=== PATIENT | female | born 1980 | race Caucasian/White ===

== ENCOUNTER 2022-05-16 13:13 | Outpatient (CLI) | payer BC, SELFPAY ==
--- NOTE | ~2022-05-16 | US_ITS ---
EXAMINATION: US pelvic complete w TV DATE: 05/16/2022 14:44 INDICATION: Abnormal uterine and vaginal bleeding. History of fibroids. Comparison:No prior studies for comparison. TECHNIQUE: Multiple transabdominal and endovaginal sonographic images of the pelvis performed. FINDINGS: The uterus measures 9.6 x 5.6 x 5.7 cm. There is a possible mass at the fundus of the uteru s, suspicious for fibroid, not well defined. The endometrial complex measures 11 mm. The right ovary measures 2.9 x 2 x 2.7 cm and the left ovary measures 3.2 x 3.3 x 2.7 cm. There is a 2.6 cm left ovarian cyst. There are small follicles in each ovary. Normal doppler signal in both ovar ies. There is no free fluid in the pelvis. There are no abnormal masses seen on either side. IMPRESSION: 1. Left ovarian cyst measuring 2.6 cm. 2: Possible mass at the fundus of uterus, suspicious for fibroid, not well delineated. Reviewed, dictated and finalized at location A. IMPRESSION: 1. Left ovarian cyst measuring 2.6 cm. 2: Possible mass at the fundus of uterus, suspicious for fibroid, not well deli neated.
== END 2022-05-16 13:14 | disposition home or self-care (01) ==
LOC: ANHIMG 13:14
PROVIDERS: Visit Provider Obstetrics & Gynecology
DX: N83.202 Unspecified ovarian cyst, left side (principal)
CPT/HCPCS: 76830; 76856

== ENCOUNTER 2022-07-30 14:13 | Outpatient (CLI) | payer BC, SELFPAY ==
--- NOTE | 2022-07-30 14:00 | ECG_ITS ---
Measurements Intervals [place] Rate: 66 P: 38 [place]: 160 QRS: 23 QRSD: 92 T: 6 QT: 412 QTc: 433 Interpretive Statements SINUS RHYTHM WITH SINUS ARRHYTHMIA LOW QRS VOLTAGE IN PRECORDIAL LEADS BASELINE ARTIFACT- I, II, AVR, AVL, AVF, V3 BORDERLINE ECG NO PREVIOUS ECG AVAILABLE FOR COMPARISON Electronically Signed On 07-30-2022 16:18:32 CDT by Reagan José D.O.
== END 2022-07-30 14:14 | disposition home or self-care (01) ==
LOC: ANHSURGERY 14:29
PROVIDERS: PCP Student in an Organized Health Care Education/Training Program; Visit Provider Obstetrics & Gynecology
DX: D25.9 Leiomyoma of uterus, unspecified (principal); I10 Essential (primary) hypertension; Z01.818 Encounter for other preprocedural examination; R94.31 Abnormal electrocardiogram [ECG] [EKG]
CPT/HCPCS: 36415; 86850; 86900; 86901; 93005

== ENCOUNTER 2022-07-31 01:18 | Day surgery (SDC) | payer BC, SELFPAY ==
[2022-07-25 14:59] VITALS: BMI 38.0
--- NOTE | 2022-07-25 15:12 | PC.NURSE ---
Report to the Outpatient Waiting Room, entrance under the green pavilion located off [facility], at time 10:30 on date 07/31/22. OR Time: 12:30. Time changes happen often and if your time is changed the preop area will call you the afternoon before. - You and your visitor will be asked to self-screen and do not enter if you have any COVID symptoms. - Only one visitor and NO children visitors are allowed at this time. YOU WILL BE ALLOWED 2 VISITORS AT A TIME ONCE YOU ARE IN YOUR ROOM AFTER SURGERY. - The patient visitor is requested to leave or wait in car when not with patient due to restrictions. - A mask is required within the hospital. Patients may have clear liquids (water, carbonated beverages, clear teas, apple juice) until 3 hours prior to surgery (9:30) with a maximum of 20 ounces. - No food from midnight until time of surgery Take the following medications with a SIP of water the morning of surgery: INHALERS, LAMOTRIGINE, LORAZEPAM IF NEEDED Medications to discontinue per physician: N/A Date to take last dose: N/A Please no make-up, nail urdu, hairspray, perfume, deodorant, or body powder the day of surgery. No jewelry (including any body piercings) or valuables the day of surgery, leave them at home. Please take a shower or bath the night before, or the morning of, surgery with an antibacterial soap. Wear comfortable, loose fitting clothing. - Jewelry must be removed prior to entering the operating room. Rings and piercings that are not removed may be cut off. - The hospital will not accept responsibility for valuables. - Please leave all valuables, including medications, at home the day of surgery. If you are going home after surgery, a licensed buggy driver must drive you home. - NO public transportation without another adult. - We recommend that an adult stay with you for 24 hours following discharge. - We also recommend that you do not drive, make important decision, drink alcoholic beverages, or take any drugs that were not prescribed by your health care provider for at least 24 hours after your discharge time. Follow any additional instructions given to you from your surgeon. If you or anyone in your household have experienced Covid symptoms in the past week, please notify your surgeon or the nurse liaison at the phone number below for possible testing. Telephone instructions given to PT - RUSSELL MENDOZA and asked if any additional questions and then verbalized understanding. Patient advised to call surgeon office or pre surgery nurse liaison [phone] if any additional questions.
[2022-07-31] VITALS (10 sets, daily range): BP systolic 100–120; BP diastolic 58–78; PULSE 56–76; RESP 12–20; TEMP 36.4–36.6; O2SAT 95–100
--- NOTE | 2022-07-31 07:26 | PM.IMHP ---
H&P: HPI History of Present Illness Date/Time: 07/31/22 07:26 41-year-old P0 patient presents for treatment of symptomatic uterine fibroids. She has a longstanding history of heavy vaginal bleeding with severe cramping and discomfort. Also with lower back pain and occasional urge symptomatology, though she has no stress incontinence. Ultrasound has revealed a 9cm fundal fibroid, no other abnormalities of significance. Chief Complaint: Menometrorrhagia Review of Systems Review of Systems: All systems reviewed & are unremarkable except as noted in HPI and below PMFSH Past Medical History Medical History Asthma GERD (gastroesophageal reflux disease) Hypertension Panic attack 10/2018 Family History Family History Mother Diabetes mellitus Grandparent Chronic obstructive lung disease maternal grandmother Social History Social History Smoking status: Never smoker Additional smoking assessment comments: SOCIAL SMOKING WHEN DRINKING Alcohol intake: current Drinks per week: 4 Alcohol use details: 4-6/MONTH Substance use: current Substance use type: marijuana Other substance usage details: 1 x month Living arrangements: with family Additional living arrangements comments: 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 Gender identity (if verbalized by the patient): Female Sexual Orientation (if Verbalized by the Patient): Straight or Heterosexual Spiritual care concerns: No Meds Home Medications and Allergies Home Medications Medication Instructions Recorded Confirmed Type albuterol sulfate 90 mcg/actuation 1 inh inhalation Q4H 05/08/22 07/25/22 History aerosol inhaler (Ventolin HFA) fluticasone furoate 100 1 inh inhalation DAILY 05/08/22 07/25/22 History mcg/actuation blister powder for inhalation (Arnuity Ellipta) lamotrigine 100 mg tablet 100 mg PO DAILY 05/08/22 07/25/22 History lisinopril 5 mg tablet 5 mg PO DAILY 05/08/22 07/25/22 History lorazepam 0.5 mg tablet 0.5 mg PO DAILY PRN Anxiety 05/08/22 07/25/22 History montelukast 10 mg tablet 10 mg PO DAILY 05/08/22 07/25/22 History omeprazole 40 mg capsule,delayed 40 mg PO DAILY 05/08/22 07/25/22 History release eszopiclone 1 mg tablet (Lunesta) 1 mg PO HS PRN Insomnia 07/25/22 07/25/22 History Allergies Allergy/AdvReac Type Severity Reaction Status Date / Time fluconazole AdvReac Mild Flushing Verified 07/25/22 14:57 Exam Const: General: cooperative, healthy appearing and comfortable Resp: Effort & Inspection: normal respiratory effort Auscultation: clear to auscultation bilaterally Cardio: Rate: regular rate Rhythm: regular rhythm GI: Inspection: normal to inspection Auscultation: normal bowel sounds : External Female Exam: normal external appearance Speculum Exam - Vagina: normal appearance of the vagina Speculum Exam - Cervix: normal appearance of the cervix Bimanual exam- vagina & uterus: enlarged Bimanual Exam- Adnexa, other: normal adnexae Assessment and Plan Assessment and plan (1) Menometrorrhagia: Code(s): N92.1 - Excessive and frequent menstruation with irregular cycle Status: Acute (2) Dysmenorrhea: Code(s): N94.6 - Dysmenorrhea, unspecified Status: Acute (3) Fibroid uterus: Code(s): D25.9 - Leiomyoma of uterus, unspecified Status: Acute Plan Will proceed with planned robotic hysterectomy/bilateral salpingectomy with ovarian preservation. We have discussed that there may be multiple etiologies for her symptoms, though she denies any further workup for urinary and or back discomfort. Nonsurgical and under surgeries have been discussed as well and patient opts for hysterectomy. We have also discussed that with this large fibroid accomplishing the enti
--- NOTE | 2022-07-31 07:35 | WPDHPUPDATE1 ---
History and Physical Update Update Date/Time: 07/31/22 07:35 History and Physical has been reviewed, including an updated exam of the patient. There are NO changes in the patient's condition. Risks, benefits, and alternatives have been discussed and questions answered. Patient agrees to proceed with procedure.
[2022-07-31] MEDS: LACTATED RINGERS 1,000 ML 30 ML IV CONT ×3 (11:07→14:29)
[2022-07-31] MEDS: ACETAMINOPHEN 500 MG TABLET 1000 MG PO (11:07)
[2022-07-31] MEDS: KETOROLAC 15 MG/ML VIAL (*BKC) IV PUSH (11:08)
--- NOTE | 2022-07-31 11:20 | WPDANESEPPF ---
Anes - Initial Pre Proc Eval Procedure: Operation Date: 07/31/22 12:30 Proposed Procedures p Robotic Assisted Total Laparoscopic Hysterectomy with Bilateral Salpingectomy - Shmuel Briseno MD Date/Time: 07/31/22 11:20 Surgeon: Shmuel Briseno MD Pre Op Diagnosis: Uterine Fibroid Patient Data Age: 41 Gender: F Height: 1.62 m Weight: 102.7 kg Last Vital Signs Temp 97.9 F 07/31/22 10:53 Pulse 72 07/31/22 10:53 Resp 16 07/31/22 10:53 BP 117/71 07/31/22 10:53 Pulse Ox 98 07/31/22 10:53 O2 Del Method Room Air 07/31/22 10:53 Allergies Allergy/AdvReac Type Severity Reaction Status Date / Time fluconazole AdvReac Mild Flushing Verified 07/31/22 10:41 Home Medications Medication Instructions Recorded Confirmed Type albuterol sulfate 90 mcg/actuation 1 inh inhalation Q4H 05/08/22 07/31/22 History aerosol inhaler (Ventolin HFA) fluticasone furoate 100 1 inh inhalation DAILY 05/08/22 07/31/22 History mcg/actuation blister powder for inhalation (Arnuity Ellipta) lamotrigine 100 mg tablet 100 mg PO DAILY 05/08/22 07/31/22 History lisinopril 5 mg tablet 5 mg PO DAILY 05/08/22 07/31/22 History lorazepam 0.5 mg tablet 0.5 mg PO DAILY PRN Anxiety 05/08/22 07/31/22 History montelukast 10 mg tablet 10 mg PO DAILY 05/08/22 07/31/22 History omeprazole 40 mg capsule,delayed 40 mg PO DAILY 05/08/22 07/31/22 History release eszopiclone 1 mg tablet (Lunesta) 1 mg PO HS PRN Insomnia 07/25/22 07/31/22 History Patient hx anesthesia problems: none Family hx anesthesia problems: none Results Review: All pre-operative results and documents have been reviewed as part of the pre-operative evaluation. [facility] Past Medical History Medical History Asthma GERD (gastroesophageal reflux disease) Hypertension Panic attack 10/2018 Family History Family History Mother Diabetes mellitus Grandparent Chronic obstructive lung disease maternal grandmother Social History Social History Smoking status: Never smoker Additional smoking assessment comments: SOCIAL SMOKING WHEN DRINKING Alcohol intake: current Drinks per week: 4 Alcohol use details: 4-6/MONTH Substance use: current Substance use type: marijuana Other substance usage details: 1 x month Living arrangements: with family Additional living arrangements comments: Additional occupation/education comments: [employer] Gender identity (if verbalized by the patient): Female Sexual Orientation (if Verbalized by the Patient): Straight or Heterosexual Spiritual care concerns: No Anes - Eval Final PreProcedure Day of Procedure 07/31/22 11:20 Patient weight: morbidly obese Heart: regular rate and rhythm Lungs: clear to auscultation Airway: Mallampati scale class II Neurological: alert and oriented Last oral intake: >/= 8 hours ASA classification: III Emergent: no Anesthetic plan: proceed Anesthesia type and monitoring: general ETT and standard monitoring Results Review: All pre-operative results and documents have been reviewed as part of the pre-operative evaluation. Informed Consent: The patient's anesthetic plan and its attendant risks and benefits were discussed with the patient/family/POA. Questions were solicited and answers provided to the satisfaction of the patient/family/POA.
[2022-07-31] MEDS: ceFAZolin 2 GM/D5W 50 ML 2 GM/50 ML BAG IVPB (11:28)
--- NOTE | 2022-07-31 13:05 | W.PM.PROC2 ---
Procedure Note - Detailed Date of Procedure 07/31/22 Pre-op Diagnosis 1. Menometrorrhagia 2. Dysmenorrhea 3. Uterine fibroids Post-op Diagnosis Same Procedure Performed 1. Robotic assisted laparoscopic total hysterectomy with bilateral salpingectomy (see no oophorectomy) Surgeon Shmuel Briseno MD Anesthesia General Findings Enlarged uterine fibroid with normal tubes and ovaries Uterus and fibroid weighed 405g Description of Procedure Patient was prepped and draped in usual manner for this procedure. Cervical instruments were placed for uterine mobility later in the case. Abdominal trocar sites were then marked and placed under direct visualization. Instruments were placed and surgeon moved to the console. Inspection of the pelvis revealed fundal fibroid with the uterus itself and tubes of without any significant abnormalities. Initially attention was placed the mesosalpinx bilaterally which was cauterized and cut both tubes removed separately. Round ligament was cauterized and cut and the bladder flap was readily formed. Posterior leaf the broad ligament was also incised to allow skeletonization of the uterine vessels. Once this was done the vessels were cauterized and cut to separate the blood flow from the uterus. Posterior cul-de-sac was then entered and cut circumferentially to separate the cervix from the vagina. The fundal fibroid was then bivalved and with the uterus the left edge of the fibroid was delivered into the vagina. The section of fibroid which was left in the you pelvic cavity was again bivalved and removed without difficulty. Vaginal cuff was then closed using V lock suture from right angle to midline and from the left angle to midline with good approximation hemostasis noted. At this point gas was allowed to escape trocars removed incisions approximated using 4 Monocryl the patient sent to recovery room in stable condition. Estimated Blood Loss 50 Drains No Packing No Pathology Yes Complications No immediate complications Condition Stable Disposition PACU [facility] Billing Surgery - Charge Forward: Surgery Billing
[2022-07-31] MEDS: fentaNYL CITRATE INJ (*CRX) 100 MCG/2 ML VIAL 25 MCG IV PUSH ×8 (13:42→13:56)
[2022-07-31] MEDS: HYDROmorphone HCL INJ (*CRX) 1 MG/ML SYR IV PUSH ×2 (14:15→14:27)
[2022-07-31] MEDS: DEXTROSE 5%/LACTATED RINGERS 1,000 ML 125 ML IV CONT (15:14)
[2022-07-31] MEDS: KETOROLAC 30 MG/ML VIAL (*BKC) IV PUSH (15:15)
--- NOTE | 2022-07-31 15:32 | OBPPTRN ---
1451 Patient transferred to post room #[id number] via stretcher. Support person present. Oriented to unit, room, information board, admission packet and security measures. Patient verbalizes understanding.
[2022-07-31] MEDS: MORPHINE SULFATE (*CRX) 4 MG/ML INJ IV PUSH ×2 (17:10→21:39)
[2022-07-31] MEDS: ALBUTEROL SULFATE (*SP) AEROSOL 1 PUFF INHALATION (17:44)
[2022-07-31] MEDS: HYDROcodone/acetaminophen (*CRX) 10-325 MG TABLET 1 TAB PO (19:02)
[2022-07-31] MEDS: ONDANSETRON INJ 4 MG/2 ML VIAL IV PUSH (20:10)
[2022-08-01 01:00] VITALS: BP 119/77; PULSE 65; RESP 18; TEMP 37.2; O2SAT 99
[2022-08-01] MEDS: SIMETHICONE 80 MG TAB.CHEW PO ×2 (01:25→07:16)
[2022-08-01] MEDS: MONTELUKAST SODIUM 10 MG TABLET PO (01:26)
[2022-08-01] MEDS: PANTOPRAZOLE 40 MG TABLET PO (01:26)
[2022-08-01] MEDS: lisinopriL 5 MG TABLET PO (01:27)
[2022-08-01] MEDS: lamoTRIgine 100 MG TABLET PO (01:27)
[2022-08-01] MEDS: MORPHINE SULFATE (*CRX) 4 MG/ML INJ IV PUSH (01:31)
[2022-08-01] MEDS: KETOROLAC 30 MG/ML VIAL (*BKC) IV PUSH (01:32)
[2022-08-01] MEDS: ONDANSETRON INJ 4 MG/2 ML VIAL IV PUSH (01:41)
[2022-08-01 04:36] VITALS: BP 104/61; PULSE 60; RESP 18; TEMP 37.2; O2SAT 98
[2022-08-01 05:25] LABS: Basophils Percent Auto 0.2 % (0.2-1.2); Hematocrit 34.9 % (37.0-47.0); Immature Granulocyte Absolute 0.03 K/mm3 (0.00-0.031); Immature Granulocyte Percent A 0.2 % (0-0.5); Lymphocytes Absolute Auto 1.59 K/mm3 (0.9-3.2); Mean Corpuscular HGB Conc 31.5 g/dl (32-36); Mean Corpuscular Hemoglobin 27.7 pg (26-34); Mean Corpuscular Volume 87.9 fl (80-100); Mean Platelet Volume 9.4 fl (7.4-10.4); Monocytes Absolute Auto 0.7 K/mm3 (0.1-0.6); Neutrophils Absolute Auto 9.8 K/mm3 (1.3-6.7); Neutrophils Percent Auto 80.6 % (45.5-73.1); Platelet Count Result 317 k/mm3 (150-375); Red Blood Count 3.97 M/mm3 (4.2-5.4); Red Cell Distribution Width 13.9 % (11.5-14.5); White Blood Count 12.2 K/mm3 (4.5-10.0)
[2022-08-01 07:15] VITALS: PULSE 60; RESP 18; O2SAT 98
[2022-08-01] MEDS: IBUPROFEN 600 MG TABLET PO (07:15)
[2022-08-01] MEDS: HYDROcodone/acetaminophen (*CRX) 10-325 MG TABLET 1 TAB PO ×2 (07:15→10:35)
[2022-08-01 07:25] VITALS: BP 104/62; PULSE 65; RESP 18; TEMP 36.2; O2SAT 100
[2022-08-01] MEDS: CALCIUM CARBONATE (TUMS) 500 MG (200 MG ELEMENTAL) (09:34)
== END 2022-08-01 10:55 | disposition home or self-care (01) ==
LOC: ANHSURGERY 10:26 → ANHOB2 18:00
PROVIDERS: PCP Student in an Organized Health Care Education/Training Program; Visit Provider Obstetrics & Gynecology
PROC: (CPT 58554; principal; 2022-07-31 12:30)
DX: N80.0 Endometriosis of uterus (principal); N92.1 Excessive and frequent menstruation with irregular cycle; D25.9 Leiomyoma of uterus, unspecified; N94.6 Dysmenorrhea, unspecified; K21.9 Gastro-esophageal reflux disease without esophagitis; I10 Essential (primary) hypertension; J45.909 Unspecified asthma, uncomplicated
CPT/HCPCS: 58554; 36415; 85025; 88307; 99199; A9270; J0330; J0690; J1100; J1170; J1885; J2250; J2270; J2405; J2704; J2710; J3010; J7030; J7120; J7121

== ENCOUNTER 2024-01-23 12:47 | Emergency (ER) | payer OTHER, SELFPAY ==
[2024-01-23 12:49] VITALS: BP 137/81; PULSE 105; RESP 18; TEMP 36.6; O2SAT 98
--- NOTE | 2024-01-23 15:40 | ED.ALLEREA ---
HPI - Allergic Reaction General Chief complaint: Allergic Reaction Stated complaint: swollen eyes Time Seen by Provider: 01/23/24 15:04 History of Present Illness HPI narrative: 43-year-old female presenting with eye irritation. Patient states she had a last lift approximately 3-4 days ago. Since that time she has developed bilateral eye irritation. States that they itch and burn. She called her PCP who started her on moxifloxacin drops and [id number] saline drops. Unfortunately, her symptoms have continued. Feel sensitive to light. No vision changes. States she has never had a lash left before. No further complaints. Related Data Home Medications Medication Instructions Recorded Confirmed albuterol sulfate 90 mcg/actuation 1 inh inhalation Q4H 05/08/22 09/09/22 aerosol inhaler (Ventolin HFA) lamotrigine 100 mg tablet 100 mg PO DAILY 05/08/22 09/09/22 lisinopril 5 mg tablet 5 mg PO DAILY 05/08/22 09/09/22 lorazepam 0.5 mg tablet 0.5 mg PO DAILY PRN Anxiety 05/08/22 09/09/22 montelukast 10 mg tablet 10 mg PO DAILY 05/08/22 09/09/22 omeprazole 40 mg capsule,delayed 40 mg PO DAILY 05/08/22 09/09/22 release eszopiclone 1 mg tablet (Lunesta) 1 mg PO HS PRN Insomnia 07/25/22 09/09/22 Allergies Allergy/AdvReac Type Severity Reaction Status Date / Time trazodone Allergy Dizziness Verified 01/23/24 13:50 fluconazole AdvReac Mild Flushing Verified 01/23/24 12:56 Review of Systems Review of Systems: All systems reviewed & are unremarkable except as noted in HPI and below PMFSH Past Medical History Medical History Asthma GERD (gastroesophageal reflux disease) Hypertension Panic attack 10/2018 Surgical History Surgical History History of hysteroscopy (07/31/22) Robotic assisted laparoscopic total hysterectomy with bilateral salpingectomy (see no oophorectomy) Family History Family History Mother Diabetes mellitus Grandparent Chronic obstructive lung disease maternal grandmother Social History Social History Smoking status: Never smoker Tobacco type: cigarettes Additional smoking assessment comments: SOCIAL SMOKING WHEN DRINKING Alcohol intake: current Drinks per week: 4 Alcohol use details: 4-6/MONTH Substance use: current Substance use type: marijuana Other substance usage details: 1 x month Living arrangements: with family Additional living arrangements comments: Occupation/Education: occupation Additional occupation/education comments: [employer] Gender identity (if verbalized by the patient): Female Sexual Orientation (if Verbalized by the Patient): Straight or Heterosexual Spiritual care concerns: No Exam Narrative: GENERAL: Uncomfortable appearing HEAD: Normocephalic, atraumatic. EYES: PERRLA and EOMI. bilateral conjunctivae are erythematous; + mild chemosis bilaterally, patient is sensitive to light, pupils are normal ENT: grossly unremarkable NECK: Supple. CHEST: No respiratory distress. HEART: Regular rate and rhythm EXTREMITIES: Normal range of motion. SKIN: Warm, dry, no rash. NEURO: Alert and oriented x3. PSYCH: Normal mood and affect. Course Vital Signs Vital signs: Vital Signs Temperature 97.8 F 01/23/24 12:49 Pulse Rate 105 H 01/23/24 12:49 Respiratory Rate 18 01/23/24 12:49 Blood Pressure 137/81 01/23/24 12:49 Pulse Oximetry 98 01/23/24 12:49 Oxygen Delivery Room Air 01/23/24 12:49 Temperature 97.8 F 01/23/24 12:49 Pulse Rate 98 01/23/24 15:50 Respiratory Rate 17 01/23/24 15:50 Blood Pressure 133/82 01/23/24 15:50 Pulse Oximetry 98 01/23/24 15:50 Oxygen Delivery Room Air 01/23/24 12:49 MDM - Allergic Reaction MDM Narrative
[2024-01-23] MEDS: predniSONE 20 MG TABLET 40 MG PO (15:48)
[2024-01-23] MEDS: diphenhydrAMINE HCl CAP 25 MG CAPSULE 50 MG PO (15:48)
[2024-01-23 15:50] VITALS: BP 133/82; PULSE 98; RESP 17; O2SAT 98
== END 2024-01-23 16:58 | disposition home or self-care (01) ==
PROVIDERS: Emergency Provider Emergency Medicine; PCP Student in an Organized Health Care Education/Training Program
DX: T65.91XA Toxic effect of unspecified substance, accidental (unintentional), initial encounter (principal); H10.213 Acute toxic conjunctivitis, bilateral; J45.909 Unspecified asthma, uncomplicated; I10 Essential (primary) hypertension; K21.9 Gastro-esophageal reflux disease without esophagitis; Z90.710 Acquired absence of both cervix and uterus; Z90.79 Acquired absence of other genital organ(s); F17.210 Nicotine dependence, cigarettes, uncomplicated; X58.XXXA Exposure to other specified factors, initial encounter
CPT/HCPCS: 99283; A9270; J7512

== ENCOUNTER 2025-04-25 09:29 | Emergency (ER) | payer OTHER, SELFPAY ==
--- NOTE | ~2025-04-25 | CT_ITS ---
EXAMINATION: CT abdomen pelvis w con DATE: 04/25/2025 11:51 INDICATION: Epigastric pain and right upper quadrant abdominal pain. Constipation. TECHNIQUE: Computed tomography (CT) of the abdomen and pelvis was performed with 100 mL Omnipaque-350 intravenous contrast. Automated exposure control and iterative reconstruction technique were employe d. The dose-length product was 1313.17 mGy-cm. COMPARISON: None FINDINGS: Lung bases are clear. Heart size is normal. No pericardial or pleural effusion. Small sliding-type hi atal hernia. Cholecystectomy clips the gallbladder fossa. Liver, spleen, pancreas, bilateral adrenal glands and right kidney are normal. 2 cm left renal cyst. Moderate amount of stool scattered througho ut the colon. Small bowel and appendix are normal. Bladder is normal. The uterus is not identified an d has likely been surgically resected. 2 similar right adnexal cyst. Left adnexa is unremarkable. No free intraperitoneal gas or fluid. No pathologically enlarged abdominal or pelvic lymphadenopathy. Mi ld stranding and a few foci of gas in the subcutaneous tissues at the right abdominal wall likely rel ated to subcutaneous injection. Bones are unremarkable. IMPRESSION: 1. No acute intra-abdominal/pelvic process. 2. Small sliding-type hiatal hernia. Reviewed, dictated and finalized at location A.
[2025-04-25 09:59] VITALS: BP 127/89; PULSE 81; RESP 18; TEMP 36.7; O2SAT 98
[2025-04-25 10:21] VITALS: BP 127/89; PULSE 82; RESP 15; O2SAT 95
[2025-04-25 10:36] LABS: Basophils Percent Auto 0.3 % (0.2-1.2); Hematocrit 39.8 % (37.0-47.0); Immature Granulocyte Absolute 0.04 K/mm3 (0.00-0.031); Immature Granulocyte Percent A 0.4 % (0-0.5); Lymphocytes Absolute Auto 1.87 K/mm3 (0.9-3.2); Lymphocytes Percent Auto 19.3 % (18.3-44.2); Mean Corpuscular HGB Conc 32.7 g/dl (32-36); Mean Corpuscular Hemoglobin 28.3 pg (26-34); Mean Corpuscular Volume 86.7 fl (80-100); Mean Platelet Volume 8.9 fl (7.4-10.4); Monocytes Absolute Auto 0.4 K/mm3 (0.1-0.6); Monocytes Percent Auto 3.8 % (2.6-8.5); Neutrophils Absolute Auto 7.4 K/mm3 (1.3-6.7); Neutrophils Percent Auto 76.2 % (45.5-73.1); Platelet Count Result 342 k/mm3 (150-375); Red Blood Count 4.59 M/mm3 (4.2-5.4); Red Cell Distribution Width 14.6 % (11.5-14.5); White Blood Count 9.7 K/mm3 (4.5-10.0)
[2025-04-25 10:47] LABS: Alanine Aminotransferase 37 U/L (6-35); Albumin Level 4.1 g/dL (3.5-5.1); Alkaline Phosphatase 85 U/L (38-126); Anion Gap 11 mmol/L (4-12); Aspartate Amino Transferase 26 U/L (14-36); Bilirubin,Total 0.2 mg/dL (0.2-1.3); Blood Urea Nitrogen 6 mg/dL (7-17); Calcium 9.3 mg/dL (8.4-10.2); Carbon Dioxide 24 mmol/L (22-30); Chloride 106 mmol/L (98-107); Estimated CRCL calculation 106 ml/min; Estimated Glomerular Filt Rate > 60; Glucose 114 mg/dL (65-110); Lipase 105 U/L (23-300); Potassium 3.5 mmol/L (3.4-5.0); Sodium 141 mmol/L (137-145); Total Protein 7.8 g/dL (6.3-8.2)
[2025-04-25 10:50] LABS: Add Urine Microscopic? YES; Appearance Urine Cloudy (Clear); Bacteria Urine 3+ /hpf; Bilirubin Urine Negative (Negative); Blood Urine Negative (Negative); Color Urine Yellow (Yellow); Glucose Urine UA Negative (Negative); Ketones Urine Trace mg/dL (Negative); Leukocyte Esterase Ur Negative LEU/UL (Negative); Need Manual Microscopic Reviewed; Nitrate Urine Negative (Negative); Non Pathogenic Casts 0-2; Protein Urine 1+ mg/dL (Negative); RBC Urine 0-2 /hpf (0-2); Specific Grav Ur 1.024 (1.001-1.035); Squamous Epithelial Cell Urine Moderate /hpf (Few)
--- NOTE | 2025-04-25 12:02 | ED.ABDPAIN ---
HPI - Abdominal Pain General Chief Complaint: Abdominal Pain Stated Complaint: abd pain, n/v Time Seen by Provider: 04/25/25 10:31 History of Present Illness HPI narrative: 44-year-old female with history of hypertension and GERD presents emergency department with concerns for constipation. Patient states over the past 2 weeks she has had constipation. Her last bowel movement was today but it was small in caliber. She made an appointment with her PCP and was told she had an episode of vomiting that she should present to the emergency department. She states about an hour after getting off the phone with her PCP she had an episode of emesis which prompted her to come here. She denies any focal abdominal pain but is reporting diffuse abdominal discomfort and bloating. She denies fever, dysuria or hematuria. She has attempted [id number] fiber supplements without improvement. Related Data Home Medications ?Medication ?Instructions ?Recorded ?Confirmed ?Last Taken ?Type albuterol sulfate 90 mcg/actuation 1 inh inhalation Q4H 05/08/22 08/25/24 Unknown History aerosol inhaler (Ventolin HFA) lamotrigine 100 mg tablet 100 mg PO DAILY 05/08/22 08/25/24 07/30/22 History lorazepam 0.5 mg tablet 0.5 mg PO DAILY PRN Anxiety 05/08/22 08/25/24 Unknown History montelukast 10 mg tablet 10 mg PO DAILY 05/08/22 08/25/24 07/30/22 History omeprazole 40 mg capsule,delayed 40 mg PO DAILY 05/08/22 08/25/24 07/30/22 History release eszopiclone 1 mg tablet (Lunesta) 1 mg PO HS PRN Insomnia 07/25/22 08/25/24 Unknown History dupilumab 200 mg/1.14 mL 200 mg subcut ONCE 08/25/24 08/25/24 Unknown History subcutaneous syringe (Dupixent) fluticasone furoate 50 inhalation 08/25/24 08/25/24 Unknown History mcg-vilanterol 25 mcg/dose inhalation powder (Breo Ellipta) fluticasone propionate 93 1 spray intranasal Q12H 08/25/24 08/25/24 Unknown History mcg/actuation breath activated aerosol (Xhance) semaglutide (weight loss) 0.25 1 mg subcut WEEKLY 04/05/25 Unknown History mg/0.5 mL subcutaneous pen injector (Wegovy) Allergies Allergy/AdvReac Type Severity Reaction Status Date / Time levofloxacin (From Levaquin) Allergy Severe Joint Pain Verified 04/25/25 10:05 fluconazole AdvReac Mild Flushing Verified 04/25/25 10:05 Review of Systems Review of Systems: All systems reviewed & are unremarkable except as noted in HPI and below PMFSH Past Medical History Medical History Panic attack 10/2018 Hypertension GERD (gastroesophageal reflux disease) Asthma Surgical History Surgical History Hx of cholecystectomy History of robot-assisted laparoscopic hysterectomy (07/31/22) Robotic assisted laparoscopic total hysterectomy with bilateral salpingectomy (see no oophorectomy) Family History Family History Mother Diabetes mellitus Grandparent Chronic obstructive lung disease maternal grandmother Social History Social History Smoking status: Never smoker Tobacco type: cigarettes Second hand tobacco smoke exposure: No Additional smoking assessment comments: SOCIAL SMOKING WHEN DRINKING Alcohol intake: current Drinks per week: 4 Alcohol use details: 4-6/MONTH Substance use: current Substance use type: marijuana Other substance usage details: 1 x month Do You Feel Safe in your Home?: Yes Lack of Transportation: No Lack of Food: Never True Current Housing: I Have Housing Concerned About Future Housing: No Difficulty Paying Gas/Electric Bills: No Difficulty Paying for Meds: Decline to Answer Currently Unemployed: No Education: Bachelor's Degree Difficulty w/ Childcare or Family Care: No Living arrangements: with family Additional living arrangements comments: Occupation/Education: occupation 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 HEAD: Normocephalic, atraumatic. EYES: EOMI. ENT: Nares clear, no rhinorrhea or epistaxis. Mucous membranes moist. NECK: Supple. CHEST: Clear to auscultation. No respiratory distress. HEART: Regular rate and rhythm. No murmur heard. Normal peripheral pulses. ABDOMEN: Quiet bowel sounds. Abdomen is soft and nontender. No rebound, guarding or rigidity. EXTREMITIES: Normal range of motion. No edema. SKIN: Warm, dry, no rash. NEURO: No focal deficits. Alert and oriented x3 Course Vital Signs Vital signs: Vital Signs Temperature 98.1 F 04/25/25 09:59 Pulse Rate 81 04/25/25 09:59 Respiratory Rate 18 04/25/25 09:59 Blood Pressure 127/89 04/25/25 09:59 Pulse Oximetry 98 04/25/25 09:59 Oxygen Delivery Room Air 04/25/25 09:59 Temperature 98.1 F 04/25/25 09:59 Pulse Rate 83 04/25/25 13:02 Respiratory Rate 16 04/25/25 13:02 Blood Pressure 112/92 H 04/25/25 13:02 Pulse Oximetry 98 04/25/25 13:02 Oxygen Delivery Room Air 04/25/25 09:59 MDM - Abdominal Pain MDM Narrative Medical decision making narrative: 44-year-old female presents emergency department for constipation and diffuse abdominal discomfort with an episode of nausea and vomiting this morning. Triage vitals are stable. Patient is afebrile and nontoxic appearing. Exam is notable for the above. CBC without leukocytosis or anemia. Chemistries are unremarkable. UA with 11-20 wbc's and 3+ leuk esterase, patient does have moderate squamous cells in her urine, no nitrates. She denies signs or symptoms of UTI. Lipase is within normal limits. CT abdomen pelvis shows no acute intra-abdominal or pelvic process with a small sliding type hiatal hernia. Patient was updated on results. She politely declined antiemetics. She did ask for IV fluids which were ordered but were yet to be given when I re-evaluated her. I a told her that her labs are otherwise reassuring in that she can orally hydrate at home if she so desires but we are happy to give her IV fluids if she wishes. Patient is amenable to hydrating at home. She is not currently nauseous. Will provide Reglan for home as well as a bowel regimen. Advised to follow closely with her PCP and discussed strict ED return precautions. She is agreeable with the plan verbalized understanding. Discharged in stable condition. Lab Data 04/25/25 10:16 04/25/25 10:16 Labs: Lab Results 04/25/25 Range/Units 10:16 WBC 9.7 (4.5-10.0) K/mm3 RBC 4.59 (4.2-5.4) M/mm3 Hgb 13.0 (12.0-15.0) g/dL Hct 39.8 (37.0-47.0) % MCV 86.7 (80-100) fl MCH 28.3 (26-34) pg MCHC 32.7 (32-36) g/dl RDW 14.6 H (11.5-14.5) % Plt Count 342 (150-375) k/mm3 MPV 8.9 (7.4-10.4) fl Immature Gran % (Auto) 0.4 (0-0.5) % Neut % (Auto) 76.2 H (45.5-73.1) % Lymph % (Auto) 19.3 (18.3-44.2) % [place] % (Auto) 3.8 (2.6-8.5) % Eos % (Auto) 0.0 (0-4.4) % Baso % (Auto) 0.3 (0.2-1.2) % Lymph # (Auto) 1.87 (0.9-3.2) K/mm3 [place] # (Auto) 0.4 (0.1-0.6) K/mm3 Eos # (Auto) 0.0 (0-0.3) K/mm3 Baso # (Auto) 0.0 (0.0-0.1) K/mm3 Abs Immat Gran (auto) 0.04 H (0.00-0.031) K/mm3 Absolute Neuts (auto) 7.4 H (1.3-6.7) K/mm3 Absolute Nucleated RBC 0.000 (0.0-0.012) K/mm3 Nucleated RBC % 0.0 (0.0-0.2) % Sodium 141 (137-145) mmol/L Potassium 3.5 (3.4-5.0) mmol/L Chloride 106 (98-107) mmol/L Carbon Dioxide 24 (22-30) mmol/L Anion Gap 11 (4-12) mmol/L BUN 6 L (7-17) mg/dL Creatinine 0.70 (0.7-1.0) mg/dL Estim Creat Clear Calc 106 ml/min Estimated GFR > 60 (59 - ) Glucose 114 H (65-110) mg/dL Calcium 9.3 (8.4-10.2) mg/dL Total Bilirubin 0.2 (0.2-1.3) mg/dL AST 26 (14-36) U/L ALT 37 H (6-35) U/L Alkaline Phosphatase 85 (38-126) U/L Total Protein 7.8 (6.3-8.2) g/dL Albumin 4.1 (3.5-5.1) g/dL Lipase 105 (23-300) U/L Urine Color Yellow (Yellow) Urine Appearance Cloudy H (Clear) Urine pH 7.0 (5.0-9.0) Ur Specific [place] 1.024 (1.001-1.035) Urine Protein 1+ H (Negative) mg/dL Urine Glucose (UA) Negative (Negative) mg/dL Urine Ketones Trace H (Negative) mg/dL Ur Blood (Man) Negative (Negative) Urine Nitrate Negative (Negative) Urine Bilirubin Negative (Negative) Urine Urobilinogen 1.0 (<2.0) mg/dL Add Ur Microanalysis Reviewed Leukocyte Esterase Rfl Negative (Negative) MATT/UL Urine RBC 0-2 (0-2) /hpf Urine WBC 11-20 H (0-3) /hpf Ur Squamous Epith Cells Moderate (Few) /hpf Urine Bacteria 3+ H /hpf Urine Casts 0-2 Imaging Data Radiologist's impression: ITS Impressions Abdomen/Pelvis CT 04/25/25 11:52 IMPRESSION: 1. No acute intra-abdominal/pelvic process. 2. Small sliding-type hiatal hernia. Discharge Plan Discharge Clinical Impression: Constipation Qualifiers: Constipation type: unspecified constipation type Qualified Code(s): K59.00 - Constipation, unspecified Patient Disposition: Home Condition: Stable Instructions: Antibiotic Form, Constipation (DC) Additional Instructions: You were evaluated in the emergency department for abdominal discomfort, nausea, vomiting, constipation. Incidentally were found have a small sliding type hiatal hernia but otherwise had no acute intra-abdominal or pelvic findings. Your presentation is consistent with constipation. Please make sure to drink plenty of fluids including water, Gatorade and Pedialyte. Take the stool softeners and MiraLax as directed. Follow-up closely with her primary care provider. Return to the emergency department if you develop focal abdominal pain, fever, you are unable to tolerate food or fluids, or other concerning symptoms. Patient Language: Dominican Prescriptions: New docusate sodium 100 mg capsule 100 mg PO BID Qty: 60 0RF polyethylene glycol 3350 17 gram/dose powder 17 g PO BID Qty: 119 0RF metoclopramide HCl 10 mg tablet 10 mg PO Q6H PRN (Reason: nausea and vomiting) Qty: 10 0RF No Action lorazepam 0.5 mg tablet 0.5 mg PO DAILY PRN (Reason: Anxiety) omeprazole 40 mg capsule,delayed release(DR/EC) 40 mg PO DAILY montelukast 10 mg tablet 10 mg PO DAILY albuterol sulfate [Ventolin HFA] 90 mcg/actuation HFA aerosol inhaler 1 inh inhalation Q4H lamotrigine 100 mg tablet 100 mg PO DAILY Dupixent Syringe 200 mg/1.14 mL syringe 200 mg subcut ONCE Xhance 93 mcg/actuation aerosol breath activated 1 spray intranasal Q12H Rx Instructions: into each nostril Breo Ellipta 50-25 mcg/dose blister with device inhalation venlafaxine 37.5 mg capsule,extended release 24hr 37.5 mg PO DAILY Qty: 45 3RF Wegovy 0.25 mg/0.5 mL pen injector 1 mg subcut WEEKLY Rx Instructions: administer weeks 1 through 4 of therapy levonorgestrel-ethinyl estrad 0.15 mg-30 mcg (91) tablets,dose pack,3 month 1 tablet PO DAILY Qty: 273 3RF eszopiclone [Lunesta] 1 mg Tablet 1 mg PO HS PRN (Reason: Insomnia) Follow-up/Referrals: Sylvia,DO Casey [Primary Care Provider] -
[2025-04-25 13:02] VITALS: BP 112/92; PULSE 83; RESP 16; O2SAT 98
== END 2025-04-25 13:03 | disposition home or self-care (01) ==
PROVIDERS: Student in an Organized Health Care Education/Training Program; Emergency Provider Physician Assistant; PCP Student in an Organized Health Care Education/Training Program
DX: K59.00 Constipation, unspecified (principal); K44.9 Diaphragmatic hernia without obstruction or gangrene; K21.9 Gastro-esophageal reflux disease without esophagitis; Z72.0 Tobacco use; F12.90 Cannabis use, unspecified, uncomplicated
CPT/HCPCS: 36415; 74177; 80053; 81001; 83690; 85025; 99284; Q9967